=== PATIENT | male | born 1955 | race Caucasian/White ===

== ENCOUNTER → 2016-09-03 | Outpatient (CLI) | payer BC, OTHER ==
--- NOTE | 2016-09-04 14:12 | MR ---
EXAM DATE: 09/03/16 PATIENT'S AGE: 60 Patient: NENA PALAFOX Facility: [place], [place] Site . Site : 1955 Study: MRI Knee Left [id number]/10/2017 6:25:00 PM Ordering Physician: Liz Huertas Final Report: HISTORY: Left knee pain. Technique: MRI left knee without contrast. Comparison: None. Findings: Medial compartment: Medial meniscus: Tear involving the inferior surface of the body and posterior horn of the meniscus. Inferior aspect the body meniscus is extruded into the medial gutter. Abnormal intrameniscal signal in the anterior horn without extension to the meniscal surface. Multiloculated parameniscal cyst along the body and medial aspect of the posterior horn of the meniscus. The cyst measures approximately 2.5 cm in length by 0.3 x 0.6 cm in short axis dimension. Articular cartilage: Grade 2-3 cartilage loss in the far posterior aspect of the medial femoral condyle with 1.4 x 0.5 cm central osteophyte and mild associated marrow edema. No focal cartilage defects in the weightbearing portion of the medial femoral condyle or in the medial tibial plateau. Lateral compartment: Lateral meniscus: Intact. Articular cartilage: No cartilage defects. Patellofemoral compartment: Grade 2 cartilage loss in the medial patellar facet and over the median ridge of the patella. No trochlear cartilage defect. Ligaments: ACL: Intact. PCL: Intact. MCL: Intact. Lateral ligamentous complex: Intact. Extensor mechanism: Distal quadriceps and patellar tendons are intact. Medial and lateral patellar restraints are intact. Joint space: No joint effusion. No joint bodies. Bones and soft tissues: No fracture. No marrow replacing process. No popliteal cyst. Small amount of fluid in the deep infrapatellar bursa. Impression: 1. Medial meniscus tear. 2. Mild patellar cartilage loss. Mild cartilage loss in the far posterior aspect of the medial femoral condyle with central osteophyte. Dictated by Phil Guajardo MD @ Sep 04 2016 10:41AM (Electronic Signature) Report Signed by Proxy and Original Signed Document filed in the Medical Record. NANCY
== END ==
LOC: MW.MRI 16:31
PROVIDERS: ATTEND Physician Assistant
DX: M25.562 Pain in left knee (principal); S83.242A Other tear of medial meniscus, current injury, left knee, initial encounter; M94.8X6 Other specified disorders of cartilage, lower leg; M25.762 Osteophyte, left knee; X58.XXXA Exposure to other specified factors, initial encounter
CPT/HCPCS: 73721-26-LT; 73721-LT

== ENCOUNTER 2016-09-12 06:44 | Day surgery (SDC) | payer OTHER ==
[~2016-09-12 06:44] MED LIST: Lactated Ringers 1,000 ML IV SCH
[2016-09-12] MEDS ORDERED: Propofol 200 MG/20 ML SDV ONE (07:21)
[2016-09-12] MEDS ORDERED: Lidocaine 2% 5 ML SDV ONE (07:21)
[2016-09-12] MEDS ORDERED: fentaNYL 250 MCG/5 ML SDV ONE (07:22)
[2016-09-12] MEDS ORDERED: Ondansetron 4 MG/2 ML SDV ONE (07:22)
[2016-09-12] MEDS ORDERED: Midazolam 1 MG/ML 2 ML SDV ONE (07:22)
[2016-09-12] MEDS ORDERED: Ketorolac 30 MG/ML SDV ONE (07:22)
[2016-09-12] MEDS ORDERED: ceFAZolin 2 GM in Premix Bag 1 BAG IV SCH (08:00)
[2016-09-12] MEDS ORDERED: Lidocaine 1% 50 ML MDV ONE (08:30)
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
[2016-09-12] MEDS ORDERED: Acetaminophen/HYDROcodone 325-5 MG Tab PO PRN (09:00)
--- NOTE | 2016-09-12 09:08 | PCM.OPNOTE ---
- General Post-Op/Procedure Note Date of Surgery/Procedure: 09/12/16 Operative Procedure(s): Left knee arthroscopy with PMM, chondro patella Post-Op Diagnosis: Left knee medial meniscus tear, DJD L knee Anesthesia Technique: General LMA Primary Surgeon: Angelita Roche Salon Stylist: Stephan Ferreira in mLs: 5 Condition: Good Free Text/Narrative:: tt=16 min #[id number]...
[2016-09-12] MEDS ORDERED: ePHEDrine 50 MG/ML SDV ONE (09:33)
[2016-09-12] MEDS ORDERED: fentaNYL 100 MCG/2 ML SDV IVPUSH PRN (09:45)
[2016-09-12] MEDS ORDERED: HYDROmorphone 2 MG/ML Syringe IVPUSH ONE (09:45)
[2016-09-12 11:22] VITALS: BP 112/60
--- NOTE | 2016-09-12 14:06 | OR ---
SURGEON: Angelita Roche MD DATE OF PROCEDURE: 09/12/2016 PREOPERATIVE DIAGNOSIS: Left knee medial meniscus tear. POSTOPERATIVE DIAGNOSES: 1. Left knee medial meniscus tear. 2. Degenerative joint disease left knee. PROCEDURES: Left knee arthroscopy with partial medial meniscectomy and chondroplasty of the left patella. TRUCK DESPATCHER: Stephan Ferreira PA-C ANESTHESIA: General. ESTIMATED BLOOD LOSS: 5 mL. TOURNIQUET TIME: 16 minutes. COMPLICATIONS: None. DVT PROPHYLAXIS: Not indicated. IMPLANTS USED: None. BRIEF HISTORY: Julian is a 61-year-old male, who has had complaint of persistent left knee pain. He did have an MRI, which showed a tear of the medial meniscus. Due to his lack of response to conservative treatment, I recommended surgical intervention. The risks and goals of procedure were discussed with the patient and were documented preoperatively. He agreed to proceed. DESCRIPTION OF PROCEDURE: The patient was properly identified and was brought to the operating room. He was transferred from the OR cart and placed on the operating table in a supine position. General anesthesia was administered. After adequate anesthesia was obtained, a well-padded tourniquet was applied to the left lower extremity. The left lower extremity was then prepped in standard fashion using ChloraPrep solution. It was then sterilely draped. A time-out was performed to ensure correct site and procedure. Preoperative antibiotics were given. The surgical site had been marked preoperatively. An Esmarch was used to exsanguinate the left lower extremity and the tourniquet was inflated to 250 mmHg. A lateral portal arthrotomy was established. Blunt trocar and cannula were introduced into the suprapatellar pouch. Camera, inflow, and outflow were assembled. No significant synovitis was noted. The patellofemoral joint was visualized. He was found to have grade 2 to grade 3 chondromalacia along the lateral facet of the patella. The trochlear groove showed no significant degenerative changes. The patella appeared to track centrally. I then extended down the lateral and medial gutters. No loose bodies were identified. I then entered the medial compartment. A medial portal arthrotomy was established. A blunt probe was inserted. The meniscus was probed. There was found to be a degenerative tear along the posterior horn of the meniscus. This appeared unstable. Using a combination of biters and shaver, this was resected back to a stable remnant. It was again probed and found to be stable. The joint surfaces showed diffuse grade 2 chondromalacia along the medial tibial plateau with grade 1 to grade 2 chondromalacia along the medial femoral condyle. I then entered the notch. Both the ACL and PCL were visualized and probed and found to be intact. I finally entered the lateral compartment. Grade 1 chondromalacia was noted along the joint surfaces. The meniscus was probed and found to be stable. No tear was appreciated. I then re-entered the patellofemoral joint. A shaver was used to resect the loose cartilage pieces along the lateral facet of the patella. No further catching was noted with flexion and extension of the knee. Instruments were then removed from the knee. The portal sites were closed with 3-0 nylon. Lidocaine 1% was injected along the portal tracts. Xeroform gauze was placed over the wound and a bulky dressing was applied. The tourniquet was then deflated. He was awakened from his anesthetic and transferred back to the operating room cart. He was brought to recovery room in stable condition. All needle and sponge counts were correct. SHAWNEE / GILMA /[id number]
== END 2016-09-12 11:20 | disposition home or self-care (01) ==
LOC: MW.SDS 06:44
PROVIDERS: ATTEND Orthopaedic Surgery
PROC: 0SBD4ZZ Excision of Left Knee Joint, Percutaneous Endoscopic Approach (ICD-10-PCS; principal; 2016-09-12)
DX: M23.322 Other meniscus derangements, posterior horn of medial meniscus, left knee (principal); M94.262 Chondromalacia, left knee; M17.12 Unilateral primary osteoarthritis, left knee; M10.9 Gout, unspecified; I10 Essential (primary) hypertension; Z87.440 Personal history of urinary (tract) infections; Z87.891 Personal history of nicotine dependence; Z79.899 Other long term (current) drug therapy
CPT/HCPCS: 29881; A9270; J1885; J2250; J2405; J3010; J7120; 01400; 88304; J2704

== ENCOUNTER → 2016-09-25 | Outpatient (CLI) | payer OTHER ==
--- NOTE | 2016-09-26 11:43 | CR ---
EXAMINATION: Left wrist HISTORY: Pain COMPARISON: None TECHNIQUE: 3 views FINDINGS: There is no acute osseous abnormality, dislocation, or fracture identified. Bone mineraliz ation and joint spaces are grossly preserved. Mild to moderate osteophytic changes are noted at the first CMC joint. No notable soft tissue swelling. Tiny well-corticated ossific density posterior to the wrist, possibly an old injury. IMPRESSION: Mild degenerative changes without acute findings.
== END ==
LOC: MW.CHORTHO 15:19
PROVIDERS: ATTEND Physician Assistant
DX: M25.532 Pain in left wrist (principal)
CPT/HCPCS: 73110-26-LT; 73110-LT

== ENCOUNTER 2016-11-19 06:32 | Day surgery (SDC) | payer OTHER ==
[2016-11-19] MEDS ORDERED: Bupivacaine 0.25% 10 ML SDV ONE (07:16)
[2016-11-19] MEDS ORDERED: Lidocaine 1% 50 ML MDV ONE (07:17)
[2016-11-19] MEDS ORDERED: Lidocaine 2% 5 ML SDV ONE (07:19)
[2016-11-19] MEDS ORDERED: Midazolam 1 MG/ML 2 ML SDV ONE (07:19)
[2016-11-19] MEDS ORDERED: fentaNYL 250 MCG/5 ML SDV ONE (07:19)
[2016-11-19] MEDS ORDERED: Propofol 200 MG/20 ML SDV ONE (07:19)
[2016-11-19] MEDS ORDERED: Ketorolac 30 MG/ML SDV ONE (07:20)
[2016-11-19] MEDS ORDERED: Ondansetron 4 MG/2 ML SDV ONE (07:20)
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
[2016-11-19] MEDS ORDERED: Lactated Ringers 1,000 ML IV SCH (08:00)
[2016-11-19] MEDS ORDERED: ceFAZolin 2 GM in Premix Bag 1 BAG IV SCH (08:00)
--- NOTE | 2016-11-19 08:48 | PCM.OPNOTE ---
- General Post-Op/Procedure Note Date of Surgery/Procedure: 11/19/16 Operative Procedure(s): B CTR Post-Op Diagnosis: B CTS Anesthesia Technique: General LMA Primary Surgeon: Angelita Roche Surgery Technician: Kiya Hill in mLs: 5 Condition: Good Free Text/Narrative:: tt=2 min R, 2 min L #[id number]
[2016-11-19] MEDS ORDERED: Ondansetron 4 MG Tab.DIS PO PRN (09:00)
[2016-11-19] MEDS ORDERED: Acetaminophen/HYDROcodone 325-5 MG Tab PO PRN (09:00)
--- NOTE | 2016-11-19 09:19 | PCM.POSTAN ---
POST ANESTHESIA ASSESSMENT - MENTAL STATUS Mental Status: alert (Released to Phase II in SDS in full wakefulness), oriented - RESPIRATORY Respiratory Status: respiratory rate WNL, airway patent, O2 saturation stable - CARDIOVASCULAR CV Status: pulse rate WNL, blood pressure stable - GASTROINTESTINAL GI Status: no symptoms - POST OP HYDRATION Hydration Status: adequate & stable
[2016-11-19 10:05] VITALS: BP 114/78
--- NOTE | 2016-11-19 14:13 | OR ---
SURGEON: Angelita Roche MD DATE OF PROCEDURE: 11/19/2016 PREOPERATIVE DIAGNOSIS: Bilateral carpal tunnel syndrome. POSTOPERATIVE DIAGNOSIS: Bilateral carpal tunnel syndrome. PROCEDURE: Bilateral carpal tunnel release, open. DERMATOLOGY PHYSICIAN ASSISTANT: Kiya Hill PA-C. ANESTHESIA: General. ESTIMATED BLOOD LOSS: 5 mL. TOURNIQUET TIME: 2 minutes on the right and 2 minutes on the left. COMPLICATIONS: None. DVT PROPHYLAXIS: Not indicated. IMPLANTS USED: None. BRIEF HISTORY: Julian is a 61-year-old male, who has had complaint of progressive bilateral hand numbness. He did have EMG/nerve conduction studies which confirmed bilateral carpal tunnel syndrome. Due to his lack of response to conservative treatment, I did recommend surgical intervention. The risks and goals of procedure were discussed with the patient and were documented preoperatively. He agreed to proceed. DESCRIPTION OF PROCEDURE: Right: The patient was properly identified and brought to the operating room. The patient was transferred from the operating room cart and placed on the operating room table in the supine position. Anesthesia was administered. After adequate sedation was achieved, a well-padded tourniquet was applied to the right and left forearm. The upper extremities were then prepped in standard fashion using ChloraPrep solution. Both were sterilely draped. A time-out was performed to ensure correct sites and procedures. Preoperative antibiotics were given. The surgical site had not been marked preoperatively due to the bilateral procedure. A mixture of 1% Lidocaine and 0.25% Marcaine were injected along the area of anticipated incision. An Esmarch was used to exsanguinate the right upper extremity and the tourniquet was inflated to 200 millimeters of mercury. A fifteen blade scalpel used to make an incision over the volar aspect of the hand. The subcutaneous tissues and palmar fascia were incised down to the level of the transverse carpal ligament. Transverse carpal ligament was then incised. Care was taken to release the ligament distally to the level of fat and proximally into the forearm. At the completion, we had good decompression of the median nerve. No other abnormalities were identified. The wound was then copiously irrigated with saline solution. The tourniquet was deflated. Electrocautery was used to maintain hemostasis. The incision site was closed with 4-0 nylon. Xeroform gauze was placed over the wound and a bulky dressing was applied. Left: A mixture of 1% Lidocaine and 0.25% Marcaine were injected along the area of anticipated incision. An Esmarch was used to exsanguinate the left upper extremity and the tourniquet was inflated to 200 millimeters of mercury. A fifteen blade scalpel used to make an incision over the volar aspect of the hand. The subcutaneous tissues and palmar fascia were incised down to the level of the transverse carpal ligament. Transverse carpal ligament was then incised. Care was taken to release the ligament distally to the level of fat and proximally into the forearm. At the completion, we had good decompression of the median nerve. No other abnormalities were identified. The wound was then copiously irrigated with saline solution. The tourniquet was deflated. Electrocautery was used to maintain hemostasis. The incision site was closed with 4-0 nylon. Xeroform gauze was placed over the wound and a bulky dressing was applied. The patient was awakened from the sedation and transferred back to the operating room cart. The patient was brought to the recovery room in stable condition. All needle and sponge counts were correct. SHAWNEE / GILMA /[id number] NANCY
== END 2016-11-19 10:00 | disposition home or self-care (01) ==
LOC: MW.SDS 06:32
PROVIDERS: ATTEND Orthopaedic Surgery
DX: G56.03 Carpal tunnel syndrome, bilateral upper limbs (principal); I10 Essential (primary) hypertension; Z87.891 Personal history of nicotine dependence; Z98.890 Other specified postprocedural states; Z79.899 Other long term (current) drug therapy
CPT/HCPCS: 64721; J1885; J2250; J2405; J3010; J7120; 01810; J2704